=== PATIENT | female | born 1990 | race Caucasian/White ===

== ENCOUNTER 2022-11-26 06:22 | Emergency (ER) | payer OTHER ==
[~2022-11-26] VITALS: Ht 149.9 cm; Wt 74.8 kg
[2022-11-26] MEDS ORDERED: KETO10TA2 PO (07:44)
[2022-11-26] MEDS ORDERED: ORPHENADRINE C100 MG PO (07:44)
== END 2022-11-26 07:54 ==
LOC: ER 06:22
DX: R25.2 Cramp and spasm (principal)